=== PATIENT | male | born 1995 | race Caucasian/White ===

== ENCOUNTER 2019-04-25 22:35 | Emergency (ER) | payer SELFPAY ==
[~2019-04-25] VITALS: Ht 182.9 cm; Wt 84.0 kg
[2019-04-25] MEDS ORDERED: morphine 4 MG/ML inj SYRINge IV ONE (23:10)
[2019-04-25] MEDS ORDERED: ondansetron/PF 4mg/2ml inj IV ONE (23:10)
[2019-04-25] MEDS ORDERED: normal saline 1000ml 1,000 ML IV ONE ×2 (23:10)
[2019-04-25 23:28] LABS: BASOPHILS # (AUTO) 0.1 X10'3 (0-0.2); BASOPHILS % (AUTO) 0.5 % (0-1); EOSINOPHILS # (AUTO) 0.2 X10'3 (0-0.9); NEUTROPHILS # (AUTO) 8.4 X10'3 (1.8-7.7)
[2019-04-25 23:30] LABS: EOSINOPHILS % (AUTO) 1.7 % (0-6); HEMATOCRIT 42.2 % (42.0-52.0); LYMPHOCYTES # (AUTO) 3.5 X10'3 (1.1-4.8); MEAN CORPUSCULAR HEMOGLOBIN 32.2 PG (27.0-31.0); MEAN CORPUSCULAR HGB CONC 35.6 g/dL (33.0-36.5); MEAN CORPUSCULAR VOLUME 90.5 FL (78-98); MEAN PLATELET VOLUME 8.7 FL (7.4-10.4); MONOCYTES # (AUTO) 1.1 X10'3 (0-0.9); MONOCYTES % (AUTO) 8.6 % (2-12); NEUTROPHILS % (AUTO) 63.2 % (42-75); PLATELET COUNT 298 X10'3 (140-440); RED BLOOD COUNT 4.66 X10'6 (4.70-6.10); RED CELL DISTRIBUTION WIDTH 12.5 % (11.5-14.5); WHITE BLOOD COUNT 13.3 X10'3 (4.5-11.0)
[2019-04-25 23:31] LABS: ALANINE AMINOTRANSFERASE 66 U/L (12-78); ALBUMIN 4.2 G/DL (3.4-5.0); ALBUMIN/GLOBULIN RATIO 1.2 (1.1-1.5); ALKALINE PHOSPHATASE 81 IU/L (46-116); ANION GAP 5 (8-16); ASPARTATE AMINO TRANSFERASE 28 U/L (10-37); BILIRUBIN,TOTAL 0.5 MG/DL (0.1-1.0); BLOOD UREA NITROGEN 14 MG/DL (7-18); BUN/CREATININE RATIO 11.8 (5.4-32.0); CALCIUM 9.2 MG/DL (8.5-10.1); CHLORIDE 102 MMOL/L (99-107); CREATININE 1.19 MG/DL (0.60-1.10); GLUCOSE 102 MG/DL (70-104); LIPASE 102 U/L (73-393); POTASSIUM 3.6 MMOL/L (3.5-5.1); SODIUM 138 MMOL/L (135-145); TOTAL PROTEIN 7.6 G/DL (6.4-8.2); eGFR 74 ML/MIN
[2019-04-25 23:47] LABS: CLARITY,URINE CLOUDY (Clear); COLOR,URINE AMBER (Yellow); GLUCOSE, URINE NEGATIVE (Neg); KETONES,URINE NEGATIVE (Neg); LEUKOCYTE ESTERASE ,URINE NEGATIVE (Neg); NITRITES, URINE NEGATIVE (Neg); OCCULT BLOOD,URINE LARGE (Neg); PROTEIN,URINE TRACE mg/dl (Neg); UROBILINOGEN,URINE 0.2 E.U/dL (0.2-1.0)
[2019-04-25 23:49] LABS: UA COLLECTION TYPE CLN CATCH MIDSTREAM
[2019-04-26 00:14] LABS: BACTERIA,URINE NONE SEEN /HPF (Neg); RBC,URINE TNTC /HPF (0-2); SQUAMOUS EPITHELIAL CELL,UR NONE SEEN /LPF (FEW)
[2019-04-26 00:16] LABS: MUCUS STRANDS FEW /LPF (Neg); WBC,URINE 0-4 /HPF (0-4)
[2019-04-26] MEDS ORDERED: FLO0.4C PO (00:37)
[2019-04-26] MEDS ORDERED: HYDR-4353 PO (00:37)
[2019-04-26] MEDS ORDERED: ONDA4TAB6 PO (00:37)
[2019-04-26 01:25] VITALS: BP 139/91
== END 2019-04-26 01:07 | disposition home or self-care (01) ==
LOC: ER 22:36
DX: N20.0 Calculus of kidney (principal); R10.32 Left lower quadrant pain; Z79.899 Other long term (current) drug therapy
CPT/HCPCS: 36415; 74176; 80053; 81001; 83690; 85025; 96374; 96375; 99284; J2270; J2405; J7030

== ENCOUNTER 2024-06-07 19:01 | Emergency (ER) | payer SELFPAY ==
[~2024-06-07] VITALS: Ht 180.3 cm; Wt 90.9 kg
[~2024-06-07 19:01] MED LIST: ONDA4TAB6 PO
[2024-06-07 19:19] VITALS: BP 172/106; PULSE 100; RESP 18; O2SAT 99
[2024-06-07] MEDS: nitroGLYCERIN 0.4mg SUBLingual tab SL PRN (20:06)
[2024-06-07 20:26] VITALS: TEMP 98.6
== END 2024-06-07 20:33 | disposition home or self-care (01) ==
LOC: ER 19:01
DX: T18.128A Food in esophagus causing other injury, initial encounter (principal); Z79.899 Other long term (current) drug therapy; Z72.89 Other problems related to lifestyle; W44.F3XA Food entering into or through a natural orifice, initial encounter; Y93.89 Activity, other specified; Y92.89 Other specified places as the place of occurrence of the external cause; Y99.8 Other external cause status
CPT/HCPCS: 99284